=== PATIENT | male | born 1960 | race Caucasian/White ===

== ENCOUNTER 2023-11-19 04:41 | Emergency (ER) | payer MEDICAID, OTHER ==
[~2023-11-19] VITALS: Ht 172.7 cm; Wt 77.0 kg
[2023-11-19 04:54] VITALS: BP 118/76; PULSE 72; RESP 16; TEMP 98.2; O2SAT 99
[2023-11-19] MEDS ORDERED: IBUP-2028 PO (05:54)
[2023-11-19] MEDS ORDERED: IBUPROFEN 400MG TABLET PO ONE (06:00)
[2023-11-19] MEDS ORDERED: ACETAMINOPHEN 325MG TABLET PO ONE (06:00)
== END 2023-11-19 06:25 | disposition home or self-care (01) ==
LOC: ER 04:41
DX: M54.50 Low back pain, unspecified (principal); F15.10 Other stimulant abuse, uncomplicated
CPT/HCPCS: 99283